=== PATIENT | female | born 1945 | race Caucasian/White ===

== ENCOUNTER 2024-09-09 13:07 | Inpatient (IN) ==
[2024-09-09 14:43] LABS: Basophils # (auto) 0.04 K/uL (0.00-0.20); Basophils % (auto) 0.5 %; Eosinophils # (auto) 0.13 K/uL (0.00-0.50); Eosinophils % (auto) 1.7 %; Hemoglobin 9.8 g/dl (12.0-16.0); Immature Granulocytes # (auto) 0.04 K/uL (0.01-0.20); Immature Granulocytes % (auto) 0.5 %; Lymphocytes # (auto) 0.99 K/uL (1.20-3.40); Lymphocytes % (auto) 12.7 %; Mean Corpuscular Hemoglobin 24.2 pg (25.0-34.0); Mean Corpuscular Hgb Conc 30.6 g/dL (32.0-36.0); Mean Platelet Volume 11.1 fL (9.4-12.4); Monocytes # (auto) 0.57 K/uL (0.11-0.59); Monocytes % (auto) 7.3 %; Neutrophils # (auto) 6.04 K/uL (1.40-6.50); Neutrophils % (auto) 77.3 %; Platelet Count 154 K/uL (130-400); Red Blood Count 4.05 M/uL (4.20-5.40); White Blood Count 7.81 K/ul (4.8-10.8)
[2024-09-09 14:59] LABS: Albumin Globulin Ratio 1.1 (0.9-2); Albumin Level 3.2 gm/dl (3.4-5.0); BUN Creatinine Ratio 6.9 (10-20); Bilirubin,Total 1.7 mg/dl (0.2-1.0); Calcium 8.8 mg/dl (8.6-10.3); Creatinine Clr Calc Pharmacy 49.3 ml/min; Globulin 2.8 gm/dl (2.5-4.0); Magnesium 1.4 mg/dl (1.7-2.4); Potassium 3.7 mmol/L (3.5-5.1)
--- NOTE | 2024-09-09 15:03 | XRay Report ---
XR chest 1V portable CLINICAL HISTORY: weakness COMPARISON STUDY: No previous studies for comparison. FINDINGS: Severe osteoarthritis of the left glenohumeral joint is incidentally noted. There is appare nt moderate elevation of the right hemidiaphragm. No consolidation is identified. There is no evidenc e for pulmonary edema. The heart is mildly enlarged. IMPRESSION: 1. No acute cardiopulmonary findings. 2. Mild cardiomegaly without evidence for pulmonary edema. 3. Moderate elevation of the right hemidiaphragm. ACT 112: Negative or not required by law. Electronically signed by: Ar Aguirre M.D. 09/09/2024 3:02 PM
[2024-09-09 15:09] LABS: INR 1.1 (0.9-1.1); Prothrombin Time 11.9 Seconds (9.0-12.0)
[2024-09-09 15:11] LABS: Thyroid Stimulating Hormone 1.825 uIu/ml (0.300-4.500)
[2024-09-09] MEDS: MAGNESIUM SULFATE / D5W 1 GM/100 ML BAG IV ONE (16:44)
[2024-09-09] MEDS: FUROSEMIDE 40 MG/4 ML VIAL IV ONE (17:16)
[2024-09-09] MEDS ORDERED: GLUCOSE 40% GEL 15 GM TUBE PO PRN (17:29)
[2024-09-09] MEDS ORDERED: CARBOHYDRATES FOR HYPOGLYCEMIA PO PRN (17:29)
[2024-09-09] MEDS ORDERED: GLUCAGON FOR INJ 1 MG VIAL SQ PRN (17:29)
[2024-09-09] MEDS ORDERED: PHARMACY GLYCEMIC MGMT CONSULT PRN (17:29)
[2024-09-09] MEDS ORDERED: DEXTROSE 50% 50 ML SYRINGE IV PRN (17:29)
[2024-09-09] MEDS ORDERED: ONDANSETRON INJ 2 MG/ML 2 ML VIAL IV PRN (17:29)
[2024-09-09] MEDS ORDERED: GLUCOSE 10 TAB/TUBE PO PRN (17:29)
[2024-09-09] MEDS ORDERED: MAGNESIUM HYDROXIDE SUSP 30 ML UDC PO PRN (17:29)
[2024-09-09] MEDS ORDERED: ALUMINUM/MAGNESIUM SUSP 30 ML UDC PO PRN (17:29)
[2024-09-09 17:37] LABS: Appearance Urine Clear (Clear); Bacteria Urine Automated None Seen (None Seen); Bilirubin Urine Negative (Negative); Blood Urine 1+ (Negative); Cast Urine Automated 0-2 /lpf (0-2); Color Urine Yellow; Epithelial Cell Urine Auto 0-2 /hpf (0-2); Glucose Urine UA Negative (Negative); Ketones Urine Negative (Negative); Leukocyte Esterase Urine Negative (Negative); Nitrite Urine Negative (Negative); Protein Urine Negative (Negative); Specific Gravity Urine 1.011 (1.000-1.030); Urobilinogen Urine Negative (Negative); WBC Urine Automated 0-5 /hpf (0-5); pH Urine 5.5 (4.5-7.5)
[2024-09-09] MEDS: POTASSIUM CHLORIDE CRTAB 20 MEQ TABCR PO STA (17:46)
--- NOTE | 2024-09-09 18:47 | Emergency Department Note ---
Impression & Plan Cirrhosis, Edema, peripheral, Abdominal ascites ED Provider Note NAME: BARB DOCKERY AGE: 79 SEX: Female INFORMANT: Patient and ED PROVIDER(S): Kiko Castro MD CHIEF COMPLAINT: Ascites PLAN: Disposition: Admitted Outpatient prescription management: none Referral: None MEDICAL DECISION MAKING: Patient presented because of ascites and weight gain. On physical examination she did have peripheral edema as well as a fluid wave. There is no abdominal tenderness or fever to suggest SBP. Patient underwent laboratory testing. She was found to have low magnesium and this was repleted. BNP was mildly elevated. No leukocytosis. Patient had outpatient imaging done at [facility] and I did obtain these records. They did note significant ascites and cirrhotic morphology to the liver. Patient has no physical diagnosis on workup and given the weight gain and significant ascites present further management in the hospital was deemed appropriate. [facility] Patient was evaluated in the ER and admitted for further management. 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 Vital Signs: reviewed and remarkable for hypertension Additional History obtained from: Family. They provided details of the patient's weight gain. Chronic Medical/Social Conditions affecting care: Hypertension Prior/ Outside/ External records reviewed: Outpatient CT imaging report obtained from [facility]. Cirrhotic liver and ascites present. Differential Diagnosis: Liver failure, cirrhosis, ascites, CHF, infections, cardiac, gastrointestinal, as well as other pathologies. Diagnostics, independently interpreted by me: ECG: Twelve-lead ECG reveals a sinus rhythm at [address] elevation. Low voltage QRS. Cardiac Monitoring: Cardiac monitoring ordered by me: The patient was placed on continuous cardiac monitoring and observed. It revealed a sinus rhythm at 75 beats per minute without ectopy or evidence of dysrhythmia. Medical decision rules: none Imaging studies: Chest x-ray reveals cardiomegaly without significant pulmonary edema or pneumonia. Elevated right hemidiaphragm. HPI: 79 year old Female arrives for evaluation of weight gain and abdominal distention. Patient notes over the last few weeks she has had increased weight gain of 14 pounds. She notes some shortness of breath. She she has abdominal distention and swelling in her legs and feet. Patient had outpatient testing done at the [facility] and was found to have significant ascites as well as a cirrhotic appearance of the liver. No prior history of cirrhosis. Patient does not drink alcohol. Due to the increased weight gain and abdominal distention patient was directed here for further evaluation. Pt denies LOC, headache, fevers, chills, diaphoresis, visual changes, neck pain, chest pain, breathing difficulties, nausea, vomiting, abdominal pain, back pain, melena, hematochezia, urinary symptoms, numbness, focal weakness, lymphadenopathy, rash, or other complaints. PAST MEDICAL HISTORY: See Below, hypertension PAST SURGICAL HISTORY: See Below, SOCIAL HISTORY: See Below, HOME MEDICATIONS: See Below ALLERGIES: See Below VITALS: See Below PHYSICAL EXAMINATION: GENERAL: Awake, alert, well-appearing, in no distress HENT: Normocephalic, atraumatic. Oropharynx unremarkable. EYES: Normal conjunctiva. Sclera non-icteric. NECK: Inspection normal. Non-tender. Supple. No nuchal rigidity. FROM. No masses. RESPIRATORY: Clear to auscultation. No wheezes. No rales. Normal respiratory effort. CARDIAC: Normal rate. Normal rhythm. No murmurs. No rubs. Extremities warm and well perfused. Pulses equal. No JVD. GI: Soft, moderately distended. Positive fluid wave. No tenderness to palpation. No rebound or guarding. No masses. RECTAL: Deferred. MUSCULOSKELETAL: Atraumatic. Chest examination reveals no tenderness. The back is symmetrical on inspection without obvious abnormality. There is no CVA tenderness to palpation. No joint edema. LOWER EXTREMITIES: Calves are equal size bilaterally and non-tender. 2-3+ edema. No discoloration. NEURO: Normal sensorium. No sensory or motor deficits noted. SKIN: No rash or jaundice noted. PROCEDURES: none CRITICAL CARE: none OBSERVATION NOTE: none Past Med/Surg History Problem List (Updated 09/09/24 @ 18:47 by Kiko Castro MD) Abdominal ascites (Acute) Edema, peripheral (Acute) Cirrhosis (Acute) Social History Smoking Status: Former smoker Preferred Language: Bhutanese Feels Safe at Home: Yes Allergies Allergies Allergy/AdvReac Type Severity Reaction Status Date / Time No Known Allergies Allergy Unverified 09/09/24 16:33 Results & Data (ED) Vital Signs Vital Signs - 24 hr 09/09/24 13:23 09/09/24 13:23 09/09/24 15:04 Temperature 37.0 C 37.0 C Temperature Source Oral Oral Pulse Rate 67 68 Pulse Rate [Apical] 70 Pulse Rhythm Regular Regular Pulse Rhythm [Apical] Regular Pulse Strength Normal Pulse Strength [Apical] Normal Respiratory Rate 22 22 20 Respiratory Effort / Characteristics Spontaneous Labored Spontaneous Labored Respiratory Depth Normal Normal Respiratory Pattern Regular Regular Blood Pressure 185/58 H Blood Pressure [Right Arm] 185/58 H Blood Pressure Mean 100 Blood Pressure Mean [Right Arm] 100 Blood Pressure Position Lying Blood Pressure Position [Right Arm] Lying Pulse Oximetry 94 Oxygen Delivery Method Room Air Sepsis Recent Fever Within 48 Hours No Sepsis New/Unexplained Change in Mental Status No Sepsis Action Taken by Nursing No Action Required 09/09/24 17:04 Temperature Temperature Source Pulse Rate Pulse Rate [Apical] 66 Pulse Rhythm Pulse Rhythm [Apical] Regular Pulse Strength Pulse Strength [Apical] Normal Respiratory Rate 20 Respiratory Effort / Characteristics Non-Labored Spontaneous Respiratory Depth Normal Respiratory Pattern Regular Blood Pressure Blood Pressure [Right Arm] 191/57 H Blood Pressure Mean Blood Pressure Mean [Right Arm] 101 Blood Pressure Position Blood Pressure Position [Right Arm] Semi-fowlers Pulse Oximetry 96 Oxygen Delivery Method Room Air Sepsis Recent Fever Within 48 Hours Sepsis New/Unexplained Change in Mental Status Sepsis Action Taken by Nursing Laboratory Data 09/09/24 13:20 09/09/24 13:20 Lab Results 09/09/24 09/09/24 Range/Units 13:20 17:00 WBC 7.81 (4.8-10.8) K/ul RBC 4.05 L (4.20-5.40) M/uL Hgb 9.8 L (12.0-16.0) g/dl Hct 32.0 L (37.0-47.0) % MCV 79.0 L (80.0-100.0) fL MCH 24.2 L (25.0-34.0) pg MCHC 30.6 L (32.0-36.0) g/dL RDW Std Deviation 43.0 (36.4-46.3) fL RDW Coeff of Pankaj 15.0 H (11.5-14.5) % Plt Count 154 (130-400) K/uL MPV 11.1 (9.4-12.4) fL Immature Gran % (Auto) 0.5 % Neut % (Auto) 77.3 % Lymph % (Auto) 12.7 % Lares % (Auto) 7.3 % Eos % (Auto) 1.7 % Baso % (Auto) 0.5 % Neut # (Auto) 6.04 (1.40-6.50) K/uL Lymph # (Auto) 0.99 L (1.20-3.40) K/uL Lares # (Auto) 0.57 (0.11-0.59) K/uL Eos # (Auto) 0.13 (0.00-0.50) K/uL Baso # (Auto) 0.04 (0.00-0.20) K/uL Immature Gran # (Auto) 0.04 (0.01-0.20) K/uL PT 11.9 (9.0-12.0) Seconds INR 1.1 (0.9-1.1) Sodium 138 (136-145) mmol/L Potassium 3.7 (3.5-5.1) mmol/L Chloride 105 (98-107) mmol/L Carbon Dioxide 23 (21-32) mmol/L Anion Gap 10 (3-11) BUN 7 (6-23) mg/dl Creatinine 1.02 (0.6-1.2) mg/dl Est Cr Clr Drug Dosing 49.3 ml/min eGFR 55.61 BUN/Creatinine Ratio 6.9 L (10-20) Glucose 199 H (70-99(Fasting)) mg/dl Calcium 8.8 (8.6-10.3) mg/dl Magnesium 1.4 L (1.7-2.4) mg/dl Total Bilirubin 1.7 H (0.2-1.0) mg/dl AST 26 (13-39) U/L ALT 18 (7-52) U/L Alkaline Phosphatase 166 H (34-104) U/L B-Natriuretic Peptide 338 H (0-100) pg/ml Total Protein 6.0 (6.0-8.3) gm/dl Albumin 3.2 L (3.4-5.0) gm/dl Globulin 2.8 (2.5-4.0) gm/dl Albumin/Globulin Ratio 1.1 (0.9-2) TSH 1.825 (0.300-4.500) uIu/ml Urine Color Yellow Urine Appearance Clear (Clear) Urine pH 5.5 (4.5-7.5) Ur Specific [place] 1.011 (1.000-1.030) Urine Protein Negative (Negative) Urine Glucose (UA) Negative (Negative) Urine Ketones Negative (Negative) Urine Blood 1+ H (Negative) Urine Nitrite Negative (Negative) Urine Bilirubin Negative (Negative) Urine Urobilinogen Negative (Negative) Ur Leukocyte Esterase Negative (Negative) Urine WBC (Auto) 0-5 (0-5) /hpf Urine RBC (Auto) 6-10 H (0-2) /hpf U Hyaline Cast (Auto) 0-2 (0-2) /lpf U Epithel Cells (Auto) 0-2 (0-2) /hpf Urine Bacteria (Auto) None Seen (None Seen) Administered Medications Discontinued Medications Furosemide (Furosemide 40 Mg/4 Ml Vial) 40 mg IV ONE ONE Stop: 09/09/24 17:04 Last Admin: 09/09/24 17:16 Dose: 40 mg Documented By: Magnesium Sulfate/Dextrose (Magnesium Sulfate / D5w) 1 gm in 100 mls @ 50 mls/hr IV ONE ONE Stop: 09/09/24 18:26 Last Infusion: 09/09/24 18:44 Dose: Infused Documented By: Admin: 09/09/24 16:44 Dose: 50 mls/hr Documented By: MSG Potassium Chloride (Potassium Chloride Crtab 20 Meq Tabcr) 40 meq PO NOW STA Stop: 09/09/24 17:28 Last Admin: 09/09/24 17:46 Dose: 40 meq Documented By: MSG Imaging Data Radiologist's Impression: Chest X-Ray 09/09/24 14:23 XR chest 1V portable CLINICAL HISTORY: weakness COMPARISON STUDY: No previous studies for comparison. FINDINGS: Severe osteoarthritis of the left glenohumeral joint is incidentally noted. There is apparent moderate elevation of the right hemidiaphragm. No consolidation is identified. There is no evidence for pulmonary edema. The heart is mildly enlarged. IMPRESSION: 1. No acute cardiopulmonary findings. 2. Mild cardiomegaly without evidence for pulmonary edema. 3. Moderate elevation of the right hemidiaphragm. ACT 112: Negative or not required by law. Electronically signed by: Ar Aguirre M.D. 09/09/2024 3:02 PM Discharge Plan Visit Data Chief Complaint: Illness Stated Complaint: ILLNESS ED Provider: Kiko Castro Discharge Problem: Cirrhosis, Edema, peripheral, Abdominal ascites
[2024-09-09] MEDS: MAGNESIUM SULFATE / D5W 1 GM/100 ML BAG IV SCH (19:11)
--- NOTE | 2024-09-09 20:01 | History & Physical Report ---
Date of Service September 09, 2024 Assessment & Plan (1) Abdominal ascites: Plan Volume overload, ascites Likely cirrhosis Patient presenting with progressive volume overload. See HPI. BNP elevated at presentation, will get echo, patient does have shortness of breath starting today. Patient denies abdominal pain, denies febrile illness, reports occasional alcohol intake [once a month]. Recent outpatient CT scan 09/03/2024: CT abdomen revealed marked ascites, probable cirrhosis, severe degenerative disc disease throughout lumbar spine. Given a dose of IV Lasix in the ED, will continue with IV Lasix daily for now. Will need paracentesis likely tomorrow. Continue with diuresis, monitor and replete electrolytes. GI consult. Hypomagnesemia: Admitting magnesium of 1.4, will replete 3 to 4 g of magnesium. Labs in AM. Other chronic medical conditions: Dementia, HTN, HLD, GERDcontinue with/resume home meds as and when able. DVT prophylaxis: Heparin subcu DNR/DNI Admission and Anticipated Discharge Date Admission Date: September 09, 2024 History of Present Illness Chief Complaint: generalized body swelling, shortness of breath Primary Care Provider: John Joseph 79-year-old lady with PMH of HTN, GERD, urinary incontinence, T2DM, cerebrovascular disease, CKD stage IIIb, secondary pulmonary arterial hypertension, thrombocytopenia, Alzheimer's disease, vascular dementia, major depression in remission, iron deficiency anemia, vitamin D deficiency, obesity presented to the ED with complaint of swelling and weight gain and shortness of breath. Patient reports fluid overload in the form of increasing abdominal girth and increasing lower extremity swelling for about 2 weeks, progressively worsening. Patient reports feeling weak and dizzy at times. Patient reports recent sore throat and mostly dry cough now, denies headache or chest pain or palpitation or belly pain or pain or burning while passing urine. Patient reports her bowel mo vements at her usual frequency. Patient did report shortness of breath since today which triggered her to come to the ED. Patient states quitting smoking more than 20 years ago, reports drinking alcohol maybe once a month, denies recreational drug use. Medications reviewed with the patient and her in detail at bedside. Patient takes metformin 1 g twice a day, Trulicity 3 mg subcutaneous once a week, losartan 100 mg once a day, metoprolol tartrate 12.5 mg twice a day, paroxetine 37.5 mg once a day, hydrochlorothiazide 25 mg once a day, atorvastatin 40 mg once a day, cholestyramine 4 g twice a day, oxybutynin 5 mg twice a day, gabapentin 100 mg in the morning and 200 mg in the evening, aspirin 81 mg daily, pantoprazole 40 mg daily, donepezil 10 mg at bedtime, memantine 10 mg twice a day. Plan of care discussed with the patient and her at bedside, they voiced understanding. DNR/DNI. Allergies Allergy/AdvReac Type Severity Reaction Status Date / Time No Known Allergies Allergy Unverified 09/09/24 16:33 Past Med/Surg History Problem List (Updated 09/09/24 @ 18:47 by Kiko Castro MD) Abdominal ascites (Acute) Edema, peripheral (Acute) Cirrhosis (Acute) Social History Smoking Status: Former smoker Hx Alcohol Use: Yes Hx Substance Use: No Preferred Language: Portuguese Communication Ability: Effective Recruitment Internship Required: No Beliefs That Will Affect Care: None Current Living Situation: Spouse Other Information That Helps Us Care for You: No Feels Safe at Home: Yes Safety Concerns: Feels Safe At This Time Assistive Devices: Glasses and Walker Review of Systems Review of Systems: Negative otherwise mentioned in HPI. Physical Exam Physical Exam: GENERAL: Alert and oriented x3. NAD, on RA. Obese class I HEENT: No pallor, no icterus. Pupils equal, round and reactive to light. Oral mucosa moist. NECK: No JVD, no neck masses. HEART: S1 and S2 heard. Regular rate and rhythm. No murmur, no gallop. RESPIRATORY SYSTEM: Normal AP diameter. No accessory muscle use. No wheezing, bb crackles. ABDOMEN: Soft, bowel sounds present, nontender, + distention. CENTRAL NERVOUS SYSTEM: No facial droop. Speech is clear. Obeys simple commands. Moves extremities. EXTREMITIES: 2+ BLE edema, no erythema seen. Results & Data Results & Data Vital Signs (Past 12 Hours) Vital Signs Temp Pulse Pulse Resp BP BP Pulse Ox 09/09/24 19:00 36.8 C 68 22 182/83 H 95 09/09/24 17:58 75 09/09/24 17:34 66 18 179/109 H 97 09/09/24 17:04 66 20 191/57 H 96 09/09/24 15:04 68 20 94 09/09/24 13:23 37.0 C 70 22 185/58 H 09/09/24 13:23 37.0 C 67 22 185/58 H O2 Del Method 09/09/24 19:00 Room Air 09/09/24 17:58 09/09/24 17:34 Room Air 09/09/24 17:04 Room Air 09/09/24 15:04 Room Air 09/09/24 13:23 09/09/24 13:23
[2024-09-09] MEDS: CHOLESTYRAMINE LIGHT 4 GM PKT PO SCH (21:19)
[2024-09-09] MEDS: GABAPENTIN 100 MG CAP PO SCH (21:19)
[2024-09-09] MEDS: DONEPEZIL HCL 10 MG TAB PO SCH (21:19)
[2024-09-09] MEDS: METOPROLOL TARTRATE 25 MG TAB PO SCH (21:20)
[2024-09-09] MEDS: OXYBUTYNIN CHLORIDE XL 5 MG TABCR PO SCH (21:20)
[2024-09-09] MEDS: MEMANTINE HCL 10 MG TAB PO SCH (21:21)
[2024-09-09] MEDS: LANTUS PER UNIT CHARGE SQ SCH (21:32)
[2024-09-09] MEDS: HEPARIN SOD 5,000 UNIT/0.5 ML VIAL SQ SCH (21:32)
[2024-09-09] MEDS: INSULIN ASPART PER UNIT CHARGE SC SCH (21:34)
[2024-09-10 06:36] LABS: Hematocrit (blood only) 30.4 % (37.0-47.0); Hemoglobin 9.7 g/dl (12.0-16.0); Mean Corpuscular Hemoglobin 24.5 pg (25.0-34.0); Mean Corpuscular Hgb Conc 31.9 g/dL (32.0-36.0); Mean Corpuscular Volume 76.8 fL (80.0-100.0); Mean Platelet Volume 10.7 fL (9.4-12.4); Platelet Count 166 K/uL (130-400); RDW Coefficient of Variation 15.1 % (11.5-14.5); RDW Standard Deviation 41.5 fL (36.4-46.3); Red Blood Count 3.96 M/uL (4.20-5.40); White Blood Count 6.03 K/ul (4.8-10.8)
[2024-09-10 06:53] LABS: BUN Creatinine Ratio 7.6 (10-20); Calcium 8.7 mg/dl (8.6-10.3); Creatinine Clr Calc Pharmacy 46.5 ml/min; Magnesium 1.9 mg/dl (1.7-2.4); Phosphorus 3.3 mg/dl (2.5-4.9); Potassium 3.6 mmol/L (3.5-5.1)
[2024-09-10] MEDS: PANTOprazole 40 MG TAB PO SCH (08:18)
[2024-09-10] MEDS: GABAPENTIN 100 MG CAP PO SCH (08:18)
[2024-09-10] MEDS: ASPIRIN 81 MG ECTAB PO SCH (08:19)
[2024-09-10] MEDS: ATORVASTATIN 40 MG TAB PO SCH (08:19)
[2024-09-10] MEDS: FUROSEMIDE 40 MG/4 ML VIAL IV SCH (08:25)
[2024-09-10] MEDS ORDERED: hydroCHLOROthiazide 25 MG TAB PO SCH (09:00)
[2024-09-10] MEDS ORDERED: LOSARTAN POTASSIUM 50 MG TAB PO SCH (09:00)
[2024-09-10] MEDS ORDERED: PARoxetine HCL 10 MG TAB PO SCH (09:00)
[2024-09-10 09:16] LABS: Estimated Average Glucose 232 mg/dl; Hemoglobin A1C 9.7 % (4.5-5.6)
--- NOTE | 2024-09-10 09:35 | Electrocardiogram Report ---
Test Reason : Blood Pressure : */* mmHG Vent. Rate : 68 BPM Atrial Rate : * BPM P-R Int : * ms QRS Dur : 72 ms QT Int : 450 ms P-R-T Axes : * -30 0 degrees QTcB Int : 478 ms Accelerated Junctional rhythm Left axis deviation Low voltage QRS Possible Old Septal infarct Abnormal ECG No previous ECGs available Confirmed by David Rene ([id number]) on 09/10/2024 9:34:59 AM Referred By: Confirmed By: David Rene
--- NOTE | 2024-09-10 10:28 | Gastrointestinal Consultation ---
<Statement entered by Jackson Yoon MD - 09/10/24 13:03> I personally saw and examined the patient. I have reviewed the chart and agree with the documentation provided by the FOUNDRY MOLDER including discussion about the assessment, treatment and plan. Briefly, 79 year old female with history of HTN, GERD, urinary incontinence, T2DM, cerebrovascular disease, CKD-3, secondary pulmonary arterial hypertension, thrombocytopenia, Alzheimer's disease, vascular dementia, depression, LASHAE, vitamin D deficiency, obesity and others below who is admitted through the ED w/ volume overload - GI was asked to evaluate for ascites and ?kilgore cirrhosis. Pt was seen and evaluated, chart reviewed. at bedside who aids in history. Suggests about 2-3 weeks ago he noted gradual lower extremity edema and abdominal distention. CT with cirrhosis and ascites. Patient has new onset cirrhosis likely secondary to KILGORE but will get hepatitis serologies and genetic liver disease studies. We should do a paracentesis and send the fluid off for albumin total protein cell count cytology. Based on this suspect she has portal hypertension with cirrhosis -likely KILGORE cirrhosis. We will obtain her old colonoscopy and EGD reports. She will need imaging with ultrasound every 6 months and then alpha-fetoprotein. She started on Lasix and Aldactone after her paracentesis. She will need to be on a 2000 mg sodium diet. GI will follow Date of Consultation September 10, 2024 Assessment & Plan (1) Abdominal ascites: 79 year old female with history of HTN, GERD, urinary incontinence, T2DM, cerebrovascular disease, CKD-3, secondary pulmonary arterial hypertension, thrombocytopenia, Alzheimer's disease, vascular dementia, depression, LASHAE, vitamin D deficiency, obesity and others below who is admitted through the ED w/ volume overload - GI was asked to evaluate for ascites and ?kilgore cirrhosis. I do not have access to these outside imaging reports to review at time of our consultation. To better evaluate the elevated liver function tests, additional studies will be ordered to rule out intrinsic causes of liver dysfunction including autoimmune studies, infectious studies and hereditary/genetic conditions to include JATINDER, AMA, ASMA, acute hepatitis, SPEP, ceruloplasmin, iron studies/ferritin, TTG IGA, Hep A IGG, Hep B AB. - MELD 10 - ABD US - Follow liver serology - Diagnostic/therapeutic paracentesis - Check cell count, culture, protein, albumin, cytology - Albumin fluid replacement 25% 25 G before and after paracentesis - MELD labs every 6 months - ABD imaging w/ AFP every 6 months - EGD every 1-2 years - No ETOH - No NSAIDs - Avoid hepatotoxin - Low NA diet, less than 2G daily - Pt and spouse verbalize this will be challenging for them - Consider dietary consultation while admitted - Less than 2G acetaminophen containing products daily Thank you for allowing us to participate in the care of this patient. Please call with any acute changes, questions or concerns. Please see addendum below with additional recommendation from my supervising physician. I spent a total of 80 minutes on the date of service in review of patient's record, and previously obtained information in person and appropriate medical visit, discussion and education of plan, with patient and/or caregiver, placing orders for tests/referral/procedures as medically necessary and documentation of pertinent clinical information in patient's medical records for their visit today. History of Present Illness Reason for Consultation: ascites, ?kilgore cirrhosis Requesting Physician: Miguel Fischer MD Attending Physician: Miguel Fischer MD History of Present Illness 79 year old female with history of HTN, GERD, urinary incontinence, T2DM, cerebrovascular disease, CKD-3, secondary pulmonary arterial hypertension, thrombocytopenia, Alzheimer's disease, vascular dementia, depression, LASHAE, vitamin D deficiency, obesity and others below who is admitted through the ED w/ volume overload - GI was asked to evaluate for ascites and ?kilgore cirrhosis. Pt was seen and evaluated, chart reviewed. at bedside who aids in history. Suggests about 2-3 weeks ago he noted gradual lower extremity edema and abdominal distention. Denies abd pain but reports feeling full/bloated. Denies nausea/vomiting. No GERD. No dysphagia. Reports daily BMs. Soft/loose at times. No report of black or bloody stools. EGD/Colonoscopy about 1 year ago at [facility]. She is unsure what these shows. Family notes that she was at [facility] recently and was told she had cirrhosis based off of imaging. No ETOH abuse history Denies history of illicit drug use No family history of liver disease Diagnosis: cirrhosis (diagnoses presumed from an imaging study report I do not have access to) Decompensations Varices: unknown Ascites: present on physical examination HE: none Screenings MELD: 10 Varices: unknown Immunizations: unknown Allergies Allergy/AdvReac Type Severity Reaction Status Date / Time No Known Allergies Allergy Unverified 09/09/24 16:33 Patient History Social History Smoking Status: Former smoker Hx Alcohol Use: Yes Hx Substance Use: No Preferred Language: Urdu Communication Ability: Effective [employer] Appellate Clerk Required: No Beliefs That Will Affect Care: None Current Living Situation: Spouse Other Information That Helps Us Care for You: No Feels Safe at Home: Yes Safety Concerns: Feels Safe At This Time Assistive Devices: Glasses and Walker Review of Systems Review of Systems: All other findings negative except as noted in HPI. Physical Exam Constitutional: WD/WN, vitals as above Respiratory: normal respiratory effort; no respiratory distress Cardiovascular: Rate/Rhythm: regular rate and regular rhythm Gastrointestinal (Abdomen): normal bowel sounds, soft, nontender, no hepatosplenomegaly +ascites Skin: no rashes, warm and dry Results & Data Vital Signs (Past 12 Hours) Vital Signs Temp Pulse Pulse Resp BP BP Pulse Ox 09/10/24 07:44 36.8 C 69 18 139/75 92 09/10/24 07:16 09/10/24 02:57 36.6 C 67 18 163/74 H 94 09/10/24 00:00 67 O2 Del Method 09/10/24 07:44 Room Air 09/10/24 07:16 Room Air 09/10/24 02:57 Room Air 09/10/24 00:00 Laboratory Results 09/10/24 09/09/24 09/09/24 Range/Units 06:13 20:18 18:49 WBC 6.03 (4.8-10.8) K/ul RBC 3.96 L (4.20-5.40) M/uL Hgb 9.7 L (12.0-16.0) g/dl Hct 30.4 L (37.0-47.0) % MCV 76.8 L (80.0-100.0) fL MCH 24.5 L (25.0-34.0) pg MCHC 31.9 L (32.0-36.0) g/dL RDW Std Deviation 41.5 (36.4-46.3) fL RDW Coeff of Pankaj 15.1 H (11.5-14.5) % Plt Count 166 (130-400) K/uL MPV 10.7 (9.4-12.4) fL Immature Gran % (Auto) % Neut % (Auto) % Lymph % (Auto) % [place] % (Auto) % Eos % (Auto) % Baso % (Auto) % Neut # (Auto) (1.40-6.50) K/uL Lymph # (Auto) (1.20-3.40) K/uL [place] # (Auto) (0.11-0.59) K/uL Eos # (Auto) (0.00-0.50) K/uL Baso # (Auto) (0.00-0.20) K/uL Immature Gran # (Auto) (0.01-0.20) K/uL PT (9.0-12.0) Seconds INR (0.9-1.1) Sodium 139 (136-145) mmol/L Potassium 3.6 (3.5-5.1) mmol/L Chloride 105 (98-107) mmol/L Carbon Dioxide 27 (21-32) mmol/L Anion Gap 7 (3-11) BUN 8 (6-23) mg/dl Creatinine 1.05 (0.6-1.2) mg/dl Est Cr Clr Drug Dosing 46.5 ml/min eGFR 53.71 BUN/Creatinine Ratio 7.6 L (10-20) Glucose 132 H (70-99(Fasting)) mg/dl POC Glucose 209 H 169 H (70-99) mg/dl Estimat Average Glucose 232 mg/dl Hemoglobin A1c 9.7 H (4.5-5.6) % Calcium 8.7 (8.6-10.3) mg/dl Phosphorus 3.3 (2.5-4.9) mg/dl Magnesium 1.9 (1.7-2.4) mg/dl Total Bilirubin (0.2-1.0) mg/dl AST (13-39) U/L ALT (7-52) U/L Alkaline Phosphatase (34-104) U/L B-Natriuretic Peptide (0-100) pg/ml Total Protein (6.0-8.3) gm/dl Albumin (3.4-5.0) gm/dl Globulin (2.5-4.0) gm/dl Albumin/Globulin Ratio (0.9-2) TSH (0.300-4.500) uIu/ml Urine Color Urine Appearance (Clear) Urine pH (4.5-7.5) Ur Specific [place] (1.000-1.030) Urine Protein (Negative) Urine Glucose (UA) (Negative) Urine Ketones (Negative) Urine Blood (Negative) Urine Nitrite (Negative) Urine Bilirubin (Negative) Urine Urobilinogen (Negative) Ur Leukocyte Esterase (Negative) Urine WBC (Auto) (0-5) /hpf Urine RBC (Auto) (0-2) /hpf U Hyaline Cast (Auto) (0-2) /lpf U Epithel Cells (Auto) (0-2) /hpf Urine Bacteria (Auto) (None Seen) 09/09/24 09/09/24 Range/Units 17:00 13:20 WBC 7.81 (4.8-10.8) K/ul RBC 4.05 L (4.20-5.40) M/uL Hgb 9.8 L (12.0-16.0) g/dl Hct 32.0 L (37.0-47.0) % MCV 79.0 L (80.0-100.0) fL MCH 24.2 L (25.0-34.0) pg MCHC 30.6 L (32.0-36.0) g/dL RDW Std Deviation 43.0 (36.4-46.3) fL RDW Coeff of Pankaj 15.0 H (11.5-14.5) % Plt Count 154 (130-400) K/uL MPV 11.1 (9.4-12.4) fL Immature Gran % (Auto) 0.5 % Neut % (Auto) 77.3 % Lymph % (Auto) 12.7 % [place] % (Auto) 7.3 % Eos % (Auto) 1.7 % Baso % (Auto) 0.5 % Neut # (Auto) 6.04 (1.40-6.50) K/uL Lymph # (Auto) 0.99 L (1.20-3.40) K/uL [place] # (Auto) 0.57 (0.11-0.59) K/uL Eos # (Auto) 0.13 (0.00-0.50) K/uL Baso # (Auto) 0.04 (0.00-0.20) K/uL Immature Gran # (Auto) 0.04 (0.01-0.20) K/uL PT 11.9 (9.0-12.0) Seconds INR 1.1 (0.9-1.1) Sodium 138 (136-145) mmol/L Potassium 3.7 (3.5-5.1) mmol/L Chloride 105 (98-107) mmol/L Carbon Dioxide 23 (21-32) mmol/L Anion Gap 10 (3-11) BUN 7 (6-23) mg/dl Creatinine 1.02 (0.6-1.2) mg/dl Est Cr Clr Drug Dosing 49.3 ml/min eGFR 55.61 BUN/Creatinine Ratio 6.9 L (10-20) Glucose 199 H (70-99(Fasting)) mg/dl POC Glucose (70-99) mg/dl Estimat Average Glucose mg/dl Hemoglobin A1c (4.5-5.6) % Calcium 8.8 (8.6-10.3) mg/dl Phosphorus (2.5-4.9) mg/dl Magnesium 1.4 L (1.7-2.4) mg/dl Total Bilirubin 1.7 H (0.2-1.0) mg/dl AST 26 (13-39) U/L ALT 18 (7-52) U/L Alkaline Phosphatase 166 H (34-104) U/L B-Natriuretic Peptide 338 H (0-100) pg/ml Total Protein 6.0 (6.0-8.3) gm/dl Albumin 3.2 L (3.4-5.0) gm/dl Globulin 2.8 (2.5-4.0) gm/dl Albumin/Globulin Ratio 1.1 (0.9-2) TSH 1.825 (0.300-4.500) uIu/ml Urine Color Yellow Urine Appearance Clear (Clear) Urine pH 5.5 (4.5-7.5) Ur Specific [place] 1.011 (1.000-1.030) Urine Protein Negative (Negative) Urine Glucose (UA) Negative (Negative) Urine Ketones Negative (Negative) Urine Blood 1+ H (Negative) Urine Nitrite Negative (Negative) Urine Bilirubin Negative (Negative) Urine Urobilinogen Negative (Negative) Ur Leukocyte Esterase Negative (Negative) Urine WBC (Auto) 0-5 (0-5) /hpf Urine RBC (Auto) 6-10 H (0-2) /hpf U Hyaline Cast (Auto) 0-2 (0-2) /lpf U Epithel Cells (Auto) 0-2 (0-2) /hpf Urine Bacteria (Auto) None Seen (None Seen) PG Care Time/CCT Total # of Minutes Spent Total Time Spent with Patient: Total time spent is greater than 50% in coordination of care (as documented) at patient's floor/unit and/or counseling patient: Coding Level of Care Code 93294 INT INP/OBS CARE 3/75MIN Diagnoses Abdominal ascites R18.8
--- NOTE | 2024-09-10 10:45 | Pharmacy Report ---
Pharmacy Glycemic Short Note 2 - Date of Service September 10, 2024 - Glycemic Short BSG Results (Last 24 hours): 09/09/24 09/09/24 09/09/24 13:20 18:49 20:18 Glucose 199 H POC Glucose 169 H 209 H 09/10/24 06:13 Glucose 132 H POC Glucose OUTPATIENT ANTIDIABETIC REGIMEN: * Metformin 1g BID * Trulicity 3 mg SQ once weekly * A1c 9.7% 09/10/24 ASSESSMENT: * is here for abdominal ascites and is consulted to manage her T2DM. PMH includes CKD III, HTD, and HLD. * BSGs last night were elevated above goal range, but seemed to have come down this AM after receiving 7 units of glargine and 1 unit of aspart last night. * Pt ordered PO diet. PLAN FOR INPATIENT GLYCEMIC CONTROL: * Hold outpatient diabetes medications * Basal insulin * Lantus 7 units SQ BID * Bolus insulin * NovoLog per scale ACHS or Q6hrs while NPO * Goal Range: Low 110 mg/dL - High 140 mg/dL * Correction Factor: 40 mg/dL/unit * Nutritional / Prandial insulin per carb ratio of 1 unit per 15 grams CHO consumed
[2024-09-10] MEDS ORDERED: ALBUMIN 25% 25 GM/100 ML VIAL IV SCH (12:00)
--- NOTE | 2024-09-10 14:24 | Hospitalist Progress Note ---
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 scan 09/03/2024: CT abdomen revealed marked ascites, probable cirrhosis, severe degenerative disc disease throughout lumbar spine. BNP elevated Echo shows EF of 60 to 65% with mild concentric LVH. Ordered for IR guided paracentesis(therapeutic/diagnostic); to be done tomorrow a.m. IV albumin ordered to be given before and after paracentesis. On IV Lasix 40 mg and started on spironolactone 100 mg as well GI consulted; obtain serology for hepatitis and genetic liver diseases studies. Hypertensionon losartan, metoprolol and hydrochlorothiazide at home. Will stop losartan indefinitely due to cirrhosis. Also, hydrochlorothiazide to be stopped in favor of Lasix. Continue metoprolol Type 2 diabetes mellitus HbA1c 9.7%; uncontrolled On Trulicity and metformin at homehold On Lantus and NovoLog here. Hyperlipidemiacontinue on Lipitor Mood disordercontinue on paroxetine Urge incontinencecontinue oxybutynin Neuropathycontinue on gabapentin GERDcontinue on Protonix Dementiacontinue on donepezil and memantine Plan of care discussed with patient's daughter at bedside. DNR/DNI DVT prophylaxis heparin Time spent evaluating patient, direct bedside care, chart review, placing orders, interpretation of diagnostic studies, discussion with consultants, patient, and family members, as well as other required patient management activities is 50 minutes Please note the above document was generated using voice recognition software. It may contain grammatical, syntax or spelling errors. Any formal questions or concerns about the content, text or information contained within the body of this dictation should be directly addressed to the provider for clarification Admission and Anticipated Discharge Date Admission Date: September 09, 2024 Subjective Patient seen and examined at bedside. She reports that her shortness of breath has improved Good urine output in last 24-hour Review of Systems Review of Systems: All systems reviewed & are unremarkable except as noted in Subjective Physical Exam Physical Exam: GENERAL: Alert and oriented x3. NAD, on RA. HEENT: No pallor, no icterus. Pupils equal, round and reactive to light. Oral mucosa moist. NECK: No JVD, no neck masses. HEART: S1 and S2 heard. Regular rate and rhythm. No murmur, no gallop. RESPIRATORY SYSTEM: Normal AP diameter. No accessory muscle use. No wheezing, bb crackles. ABDOMEN: Abdomen distended with fluid thrill present. Soft, nontender. CENTRAL NERVOUS SYSTEM: No facial droop. Speech is clear. Obeys simple commands. Moves extremities. EXTREMITIES: 3+ BLE edema, no erythema seen. Results & Data Results & Data Vital Signs (Past 12 Hours) Vital Signs Temp Pulse Pulse Resp BP BP Pulse Ox 09/10/24 14:17 73 09/10/24 11:54 67 09/10/24 10:41 36.9 C 69 16 138/75 95 09/10/24 07:44 36.8 C 69 18 139/75 92 09/10/24 07:16 09/10/24 02:57 36.6 C 67 18 163/74 H 94 O2 Del Method 09/10/24 14:17 09/10/24 11:54 09/10/24 10:41 Room Air 09/10/24 07:44 Room Air 09/10/24 07:16 Room Air 09/10/24 02:57 Room Air
[2024-09-10] MEDS: PAROXETINE 37.5 MG PO SCH (15:02)
[2024-09-11 06:00] LABS: Basophils # (auto) 0.03 K/uL (0.00-0.20); Basophils % (auto) 0.5 %; Eosinophils # (auto) 0.12 K/uL (0.00-0.50); Eosinophils % (auto) 1.8 %; Hematocrit (blood only) 31.3 % (37.0-47.0); Hemoglobin 9.8 g/dl (12.0-16.0); Immature Granulocytes # (auto) 0.03 K/uL (0.01-0.20); Immature Granulocytes % (auto) 0.5 %; Lymphocytes # (auto) 1.37 K/uL (1.20-3.40); Lymphocytes % (auto) 21.1 %; Mean Corpuscular Hemoglobin 24.4 pg (25.0-34.0); Mean Corpuscular Hgb Conc 31.3 g/dL (32.0-36.0); Mean Corpuscular Volume 77.9 fL (80.0-100.0); Mean Platelet Volume 10.7 fL (9.4-12.4); Monocytes # (auto) 0.57 K/uL (0.11-0.59); Monocytes % (auto) 8.8 %; Neutrophils # (auto) 4.37 K/uL (1.40-6.50); Neutrophils % (auto) 67.3 %; Platelet Count 186 K/uL (130-400); Red Blood Count 4.02 M/uL (4.20-5.40); White Blood Count 6.49 K/ul (4.8-10.8)
[2024-09-11 06:18] LABS: Albumin Level 3.1 gm/dl (3.4-5.0); BUN Creatinine Ratio 9.5 (10-20); Bilirubin,Total 1.3 mg/dl (0.2-1.0); Calcium 8.7 mg/dl (8.6-10.3); Creatinine Clr Calc Pharmacy 41.8 ml/min; Potassium 3.5 mmol/L (3.5-5.1); Total Protein 6.1 gm/dl (6.0-8.3)
[2024-09-11 06:36] LABS: Ferritin 20.1 ng/ml (8-388)
[2024-09-11 09:52] LABS: Hepatitis B Surface Ab Quant < 3.00 mIU/mL (>or=10mIU/mL Immune); Hepatitis B Surface Antibody Non-Immune
--- NOTE | 2024-09-11 09:54 | Ultrasound Report ---
US liver CLINICAL HISTORY: Evaluate cirrhosis. COMPARISON STUDY: No previous studies for comparison. TECHNIQUE: Sonography of the right upper quadrant was performed. FINDINGS: There is coarsening of hepatic echotexture and nodularity of the liver surface indicative o f cirrhosis. No hepatic lesions are identified. The main portal vein is patent with appropriately dir ected flow. There is no biliary ductal dilatation status post cholecystectomy. The common bile duct m easures 3 mm in caliber. Small amount of perihepatic ascites is present. Pancreatic body is normal. T he head and tail are partially obscured. There is no right hydronephrosis. IMPRESSION: 1. Cirrhotic liver. No hepatic lesions identified. 2. No biliary ductal dilatation status post cholecystectomy. 3. Small amount of perihepatic ascites. ACT 112: Negative or not required by law. Electronically signed by: Ar Aguirre M.D. 09/11/2024 9:53 AM
[2024-09-11] MEDS ORDERED: OXYTOCIN 10 UNITS/ML VIAL ONE (10:26)
--- NOTE | 2024-09-11 10:30 | Gastroenterology Progress Note ---
Date of Service September 11, 2024 Assessment & Plan (1) Cirrhosis: (2) Abdominal ascites: Plan Patient feels improved s/p paracentesis. Will await pending results of labs and chronic liver disease panel, though suspect cirrhosis is secondary to JENKINS. - MELD labs every 6 months - ABD imaging w/ AFP every 6 months - EGD every 1-2 years for variceal screening. - No ETOH - No NSAIDs - Avoid hepatotoxins - Low NA diet, less than 2G daily - Less than 2G acetaminophen containing products daily Admission and Anticipated Discharge Date Admission Date: September 09, 2024 Supervising Physician Co-Signing Physician Notes I personally saw and examined the patient. I have reviewed the chart and agree with the documentation provided by the VENEER JOINER including discussion about the assessment, treatment and plan. Briefly, status post paracentesis. 5 L were removed and she feels a lot better. Her serum ascites albumin gradient is 1.6 suggestive of portal hypertension. Her hepatitis C is negative. The rest of the serologies are pending. She will need to continue 40 mg of p.o. Lasix. I would add 100 mg of Aldactone with this. We can stop her potassium supplement to reduce. This will aid with her diuresis. She will need to stay on a 2 g sodium diet. Alpha-fetoprotein and ultrasound every 6 months. Still suspect this is JENKINS cirrhosis with decompensation with ascites. Overall she is better. Family is concerned about her being in bed for 2 days and her needs at home. Can we get a wound care nurse and PT to come by. Subjective Patient is an 79 year old female with history of HTN, GERD, urinary incontinence, T2DM, cerebrovascular disease, CKD-3, secondary pulmonary arterial hypertension, thrombocytopenia, Alzheimer's disease, vascular dementia, depression, LASHAE, vitamin D deficiency, and obesity who is admitted through the ED w/ volume overload - GI was asked to evaluate for ascites and ?jenkins cirrhosis. She is s/p paracentesis this morning. she tells me that her abdomen feels better since having fluid drained. she denies any nausea, vomiting, heartburn, changes in bowels. chronic liver disease labs were ordered and results are pending. Review of Systems Review of Systems: All systems reviewed & are unremarkable except as noted in HPI & below Physical Exam Constitutional: WD/WN, vitals as above Respiratory: normal respiratory effort, lungs clear to auscultation Cardiovascular: Rate/Rhythm: regular rate and regular rhythm Gastrointestinal (Abdomen): normal bowel sounds, soft, nontender, no hepatosplenomegaly Psychiatric: Orientation: alert and oriented x 3 Affect: euthymic affect Results & Data Results & Data Vital Signs (Past 12 Hours) Vital Signs Temp Pulse Pulse Resp BP BP Pulse Ox 09/11/24 09:29 74 09/11/24 08:13 98.2 F 80 16 153/75 H 94 09/11/24 07:55 09/11/24 03:47 98.2 F 74 18 148/78 H 95 09/10/24 23:59 80 152/72 H 09/10/24 23:44 98.2 F 78 18 189/74 H 94 O2 Del Method 09/11/24 09:29 09/11/24 08:13 Room Air 09/11/24 07:55 Room Air 09/11/24 03:47 Room Air 09/10/24 23:59 09/10/24 23:44 Room Air Coding Level of Care Code 43868 SUB INP/OBS CARE 25MIN Diagnoses Cirrhosis K74.60 Abdominal ascites R18.8
[2024-09-11 10:41] LABS: Albumin Peritoneal Fluid < 1.5 gm/dl
[2024-09-11 10:46] LABS: Glucose Peritoneal Fluid 137 mg/dl; LDH Peritoneal Fluid 34 U/L; Total Protein Peritoneal Fluid < 3.0 gm/dl
[2024-09-11] MEDS: SPIRONOLACTONE 100 MG TAB PO SCH (10:50)
[2024-09-11] MEDS: ALBUMIN 25% 25 GM/100 ML VIAL IV SCH (11:01)
[2024-09-11 11:05] LABS: Hep B Surface Ag with confirm Negative (Negative)
[2024-09-11 11:09] LABS: Hep C Ab Rflx HepCQuant RNA Negative (Negative)
[2024-09-11 12:47] LABS: Appearance Peritoneal Fluid Clear; Color Peritoneal Fluid Yellow; Lymphocytes, Fluid 35 %; Mono,Macrophage,Mesothelial 57 %; Neutrophils, Fluid 8 %; RBC Peritoneal Fluid Auto < 2000 /uL; WBC Peritoneal Fluid Auto 74 /ul (0-300)
--- NOTE | 2024-09-11 12:54 | Ultrasound Report ---
ULTRASOUND-GUIDED PARACENTESIS CLINICAL HISTORY: Ascites PROCEDURE: Procedure and risks were explained. Informed consent was obtained. A final timeout was com pleted. The abdomen was prepped and draped in sterile fashion. 1% lidocaine was utilized for skin ane sthesia. Utilizing ultrasound guidance, a 5 Urdu safety centesis catheter was advanced into the right lower quadrant pocket of ascites. Ultrasound images were obtained. 5 L of yellow-colored ascites fluid was removed and 1 L was sent to lab for analysis. The catheter was removed and Band-Aid applied. The jennifer ent tolerated the procedure well. Vital signs will be monitored postprocedure. IMPRESSION: Ultrasound-guided paracentesis as above. Performed, dictated, and signed by Ángel Pulido PA-C; to be co-signed by Dr. Ar Aguirre. Electronically signed by: Ar Aguirre M.D. 09/11/2024 4:15 PM
--- NOTE | 2024-09-11 18:12 | Hospitalist Progress Note ---
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 scan 09/03/2024: CT abdomen revealed marked ascites, probable cirrhosis, severe degenerative disc disease throughout lumbar spine. BNP elevated Echo shows EF of 60 to 65% with mild concentric LVH. Ordered for IR guided paracentesis(therapeutic/diagnostic); to be done tomorrow a.m. IV albumin ordered to be given before and after paracentesis. On IV Lasix 40 mg and started on spironolactone 100 mg as well GI consulted; obtain serology for hepatitis and genetic liver diseases studies. s/p paracentesis 5 L continue diuretics GI consulted Hypertensionon losartan, metoprolol and hydrochlorothiazide at home. Will stop losartan indefinitely due to cirrhosis. Also, hydrochlorothiazide to be stopped in favor of Lasix. Continue metoprolol - monitor Type 2 diabetes mellitus HbA1c 9.7%; uncontrolled On Trulicity and metformin at homehold On Lantus and NovoLog here. Hyperlipidemiacontinue on Lipitor Mood disordercontinue on paroxetine Urge incontinencecontinue oxybutynin Neuropathycontinue on gabapentin GERDcontinue on Protonix Dementiacontinue on donepezil and memantine Plan of care discussed with patient's daughter at bedside. DNR/DNI DVT prophylaxis heparin Admission and Anticipated Discharge Date Admission Date: September 09, 2024 Subjective seen resting in bed, comfortable s/p paracentesis abdomen feels better no nausea/vomiting no chest pain, dyspnea, palpitations, dizziness on the weak side no other symptoms Review of Systems Review of Systems: all noted and negative except for above Physical Exam Physical Exam: General- oriented x 3, not in distress, speaks in sentences with no effort or accessory muscle use Eyes- anicteric Neck- no JVD Lungs- clear breath sounds bilaterally, no crackles or wheezing Heart- normal rate, regular rhythm; no murmurs Abdomen- normal bowel sounds, nondistended, soft, nontender Extremities- mild pretibial edema, no calf tenderness Neuro- alert, oriented x 3; no gross focal neurologic deficits Skin- warm & dry Results & Data Results & Data Vital Signs (Past 12 Hours) Vital Signs Temp Pulse Pulse Resp BP BP Pulse Ox 09/11/24 15:16 37.0 C 77 18 154/70 H 95 09/11/24 14:41 76 09/11/24 10:46 36.5 C 78 16 164/69 H 95 09/11/24 09:29 74 09/11/24 08:13 36.8 C 80 16 153/75 H 94 09/11/24 07:55 O2 Del Method 09/11/24 15:16 Room Air 09/11/24 14:41 09/11/24 10:46 Room Air 09/11/24 09:29 09/11/24 08:13 Room Air 09/11/24 07:55 Room Air all noted and reviewed including below
[2024-09-12 10:59] LABS: Basophils # (auto) 0.02 K/uL (0.00-0.20); Basophils % (auto) 0.5 %; Eosinophils % (auto) 2.3 %; Hematocrit (blood only) 29.2 % (37.0-47.0); Hemoglobin 9.3 g/dl (12.0-16.0); Immature Granulocytes # (auto) 0.02 K/uL (0.01-0.20); Immature Granulocytes % (auto) 0.5 %; Lymphocytes % (auto) 15.8 %; Mean Corpuscular Hemoglobin 24.5 pg (25.0-34.0); Mean Corpuscular Hgb Conc 31.8 g/dL (32.0-36.0); Mean Platelet Volume 11.3 fL (9.4-12.4); Monocytes # (auto) 0.35 K/uL (0.11-0.59); Monocytes % (auto) 7.9 %; Neutrophils # (auto) 3.23 K/uL (1.40-6.50); Platelet Count 123 K/uL (130-400); RDW Coefficient of Variation 14.7 % (11.5-14.5); RDW Standard Deviation 41.1 fL (36.4-46.3); Red Blood Count 3.79 M/uL (4.20-5.40); White Blood Count 4.42 K/ul (4.8-10.8)
[2024-09-12 11:06] LABS: BUN Creatinine Ratio 12.6 (10-20); Calcium 8.7 mg/dl (8.6-10.3); Creatinine Clr Calc Pharmacy 44.9 ml/min; Potassium 3.4 mmol/L (3.5-5.1)
[2024-09-12] MEDS: POLYETHYLENE (MIRALAX) 17 GM PACK PO ONE (12:17)
[2024-09-12] MEDS: cephALEXin 500 MG CAP PO SCH (13:16)
[2024-09-12] MEDS: ADVANCED PROBIOTIC 625 MG CAPSULE PO SCH (13:16)
--- NOTE | 2024-09-12 17:36 | Hospitalist Progress Note ---
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 scan 09/03/2024: CT abdomen revealed marked ascites, probable cirrhosis, severe degenerative disc disease throughout lumbar spine. BNP elevated Echo shows EF of 60 to 65% with mild concentric LVH. Ordered for IR guided paracentesis(therapeutic/diagnostic); to be done tomorrow a.m. IV albumin ordered to be given before and after paracentesis. On IV Lasix 40 mg and started on spironolactone 100 mg as well GI consulted; obtain serology for hepatitis and genetic liver diseases studies. 09/12 stable after paracentesis continue Lasix + Aldactone Hypertensionon losartan, metoprolol and hydrochlorothiazide at home. Will stop losartan indefinitely due to cirrhosis. Also, hydrochlorothiazide to be stopped in favor of Lasix. Continue metoprolol -- continue to monitor may need Amlodipine Possible Chronic diastolic (congestive) heart failure -- on diuretics per above Type 2 diabetes mellitus HbA1c 9.7%; uncontrolled On Trulicity and metformin at homehold On Lantus and NovoLog here. Hyperlipidemiacontinue on Lipitor Mood disordercontinue on paroxetine Urge incontinencecontinue oxybutynin Neuropathycontinue on gabapentin GERDcontinue on Protonix Dementiacontinue on donepezil and memantine Plan of care discussed with patient's daughter at bedside. DNR/DNI DVT prophylaxis heparin Disposition PT/OT eval Admission and Anticipated Discharge Date Admission Date: September 09, 2024 Subjective ff up for liver cirrhosis, etc seen resting in bed, comfortable states she feels fine overall no abdominal pain ,nausea no chest pain, dyspnea, palpitations, dizziness no other symptoms Review of Systems Review of Systems: all noted and negative except for above Physical Exam Physical Exam: General- oriented x 3, not in distress, speaks in sentences with no effort or accessory muscle use Eyes- anicteric Neck- no JVD Lungs- clear breath sounds bilaterally, no crackles Heart- normal rate, regular rhythm; no murmurs Abdomen- normal bowel sounds, nondistended, soft, nontender Extremities-mild pretibial edema, no calf tenderness (+) erythema R foot - anterior aspect Neuro- alert, oriented x 3; no gross focal neurologic deficits Skin- warm & dry Results & Data Results & Data Vital Signs (Past 12 Hours) Vital Signs Temp Pulse Pulse Resp BP BP Pulse Ox 09/12/24 15:08 85 09/12/24 14:48 37.1 C 67 18 120/66 96 09/12/24 12:51 36.9 C 68 19 147/72 H 96 09/12/24 08:19 36.5 C 67 17 174/74 H 96 09/12/24 08:00 73 O2 Del Method 09/12/24 15:08 09/12/24 14:48 Room Air 09/12/24 12:51 Room Air 09/12/24 08:19 Room Air 09/12/24 08:00 all noted and reviewed including below
[2024-09-12] MEDS: POTASSIUM CHLORIDE CRTAB 20 MEQ TABCR PO STA (19:26)
[2024-09-13 07:56] VITALS: RESP 19
[2024-09-13] MEDS: FUROSEMIDE 40 MG TAB PO SCH (10:35)
[2024-09-13 10:58] LABS: Alpha 1 Antitrypsin 227 mg/dL (83-199); Anti Mitochondrial Antibody NEGATIVE (NEGATIVE); Anti Nuclear Antibody Screen POSITIVE (NEGATIVE); Ceruloplasmin 21 mg/dL (14-48); Hepatitis A Antibody IgM NON-REACTIVE (NON-REACTIVE); Hepatitis A Antibody Total REACTIVE (NON-REACTIVE); Hepatitis B Core Antibody IgM NON-REACTIVE (NON-REACTIVE); Smooth Muscle Antibody NEGATIVE (NEGATIVE); Transglutaminase, Tissue IgA <1.0 U/mL
[2024-09-13 11:02] LABS: BUN Creatinine Ratio 15.9 (10-20); Calcium 8.7 mg/dl (8.6-10.3); Creatinine Clr Calc Pharmacy 40.9 ml/min; Potassium 3.7 mmol/L (3.5-5.1)
[2024-09-13 12:02] LABS: ANA Pattern Nuclear, Speckled
[2024-09-13 12:10] VITALS: BP 103/66; PULSE 69; TEMP 97.9; O2SAT 96
--- NOTE | 2024-09-13 13:10 | Pharmacy Report ---
Pharmacy Glycemic Short Note 2 - Date of Service September 13, 2024 - Glycemic Short BSG Results (Last 24 hours): 09/12/24 09/12/24 09/13/24 17:25 19:51 07:52 Glucose POC Glucose 188 H 172 H 165 H 09/13/24 09/13/24:18 12:09 Glucose 208 H POC Glucose 150 H OUTPATIENT ANTIDIABETIC REGIMEN: * Metformin 1g BID * Trulicity 3 mg SQ once weekly * A1c 9.7% 09/10/24 ASSESSMENT: 09/13 * Patient received total of 24 units of insulin yesterday, of which 14 units were basal insulin * Fasting BSG 165 mg/dL - continue same basal * CF/CR tightened slightly this AM 09/10 * CH is here for abdominal ascites and is consulted to manage her T2DM. PMH includes CKD III, HTD, and HLD. * BSGs last night were elevated above goal range, but seemed to have come down this AM after receiving 7 units of glargine and 1 unit of aspart last night. * Pt ordered PO diet. PLAN FOR INPATIENT GLYCEMIC CONTROL: * Hold outpatient diabetes medications * Basal insulin * Lantus 7 units SQ BID * Bolus insulin * NovoLog per scale ACHS or Q6hrs while NPO * Goal Range: Low 110 mg/dL - High 140 mg/dL * Correction Factor: 35 mg/dL/unit * Nutritional / Prandial insulin per carb ratio of 1 unit per 12 grams CHO consumed
--- NOTE | 2024-09-13 14:59 | Discharge Summary ---
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 scan 09/03/2024: CT abdomen revealed marked ascites, probable cirrhosis, severe degenerative disc disease throughout lumbar spine. BNP elevated Echo shows EF of 60 to 65% with mild concentric LVH. Ordered for IR guided paracentesis(therapeutic/diagnostic); to be done tomorrow a.m. IV albumin ordered to be given before and after paracentesis. On IV Lasix 40 mg and started on spironolactone 100 mg as well GI consulted; obtain serology for hepatitis and genetic liver diseases studies. 09/11 s/p Paracentesis 5 L removed no signs of bacterial peritonitis 09/13 has remained stable after paracentesis continue Lasix 40mg + Aldactone 100mg daily per GI - MELD labs every 6 months - ABD imaging w/ AFP every 6 months - EGD every 1-2 years for variceal screening. - No ETOH - No NSAIDs - Avoid hepatotoxins - Low NA diet, less than 2G daily - Less than 2G acetaminophen containing products daily - patient needs to ff up with [facility] October 17, 2024 11:30 [facility] [place] (per patient's family preference, closer to home) the GI [facility] will try to call them for an earlier appointment Hypertension on losartan, metoprolol and hydrochlorothiazide at home. --Losartan and HCTZ discontinued for now to avoid kidney injury with Lasix/Aldactone -- continue Metoprolol continue to monitor BP closely Possible Chronic diastolic (congestive) heart failure -- on diuretics per above Type 2 diabetes mellitus HbA1c 9.7%; uncontrolled On Trulicity and metformin at homehold On Lantus and NovoLog while admitted-- continue for now Hyperlipidemiacontinue on Lipitor Mood disordercontinue on paroxetine Urge incontinencecontinue oxybutynin Neuropathycontinue on gabapentin GERDcontinue on Protonix Dementiacontinue on donepezil and memantine DNR/DNI DVT prophylaxis heparin q12h Disposition transition to Acute Rehab ff up with [facility] in 2 weeks Notes For Next Care Provider Medication Changes From Visit please refer to assessment and plan Admission HPI Per Admitting Provider 79-year-old lady with PMH of HTN, GERD, urinary incontinence, T2DM, cerebrovascular disease, CKD stage IIIb, secondary pulmonary arterial hypertension, thrombocytopenia, Alzheimer's disease, vascular dementia, major depression in remission, iron deficiency anemia, vitamin D deficiency, obesity presented to the ED with complaint of swelling and weight gain and shortness of breath. Patient reports fluid overload in the form of increasing abdominal girth and increasing lower extremity swelling for about 2 weeks, progressively worsening. Patient reports feeling weak and dizzy at times. Patient reports recent sore throat and mostly dry cough now, denies headache or chest pain or palpitation or belly pain or pain or burning while passing urine. Patient reports her bowel movements at her usual frequency. Patient did report shortness of breath since today which triggered her to come to the ED. Patient states quitting smoking more than 20 years ago, reports drinking alcohol maybe once a month, denies recreational drug use. Medications reviewed with the patient and her in detail at bedside. Patient takes metformin 1 g twice a day, Trulicity 3 mg subcutaneous once a week, losartan 100 mg once a day, metoprolol tartrate 12.5 mg twice a day, paroxetine 37.5 mg once a day, hydrochlorothiazide 25 mg once a day, atorvastatin 40 mg once a day, cholestyramine 4 g twice a day, oxybutynin 5 mg twice a day, gabapentin 100 mg in the morning and 200 mg in the evening, aspirin 81 mg daily, pantoprazole 40 mg daily, donepezil 10 mg at bedtime, memantine 10 mg twice a day. Plan of care discussed with the patient and her at bedside, they voiced understanding. DNR/DNI. Admission Exam Per Admitting Provider GENERAL: Alert and oriented x3. NAD, on RA. Obese class I HEENT: No pallor, no icterus. Pupils equal, round and reactive to light. Oral mucosa moist. NECK: No JVD, no neck masses. HEART: S1 and S2 heard. Regular rate and rhythm. No murmur, no gallop. RESPIRATORY SYSTEM: Normal AP diameter. No accessory muscle use. No wheezing, bb crackles. ABDOMEN: Soft, bowel sounds present, nontender, + distention. CENTRAL NERVOUS SYSTEM: No facial droop. Speech is clear. Obeys simple commands. Moves extremities. EXTREMITIES: 2+ BLE edema, no erythema seen. Discharge Exam General- oriented x 3, not in distress, speaks in sentences with no effort or accessory muscle use Eyes- anicteric Neck- no JVD Lungs- clear breath sounds bilaterally, no rales/wheezes Heart- normal rate, regular rhythm; no murmurs Abdomen- normal bowel sounds, nondistended, soft, no tenderness Extremities-mild lower leg and pedal edema, no calf tenderness no erythema Neuro- alert, oriented x 3; no gross focal neurologic deficits Skin- warm & dry Updated Medication List Medication Instructions Recorded Confirmed Type atorvastatin 40 mg tablet 40 mg DAILY 09/10/24 09/10/24 History cholestyramine (with sugar) 4 gram 4 ea PO BID 09/10/24 09/10/24 History oral powder donepezil 10 mg tablet 10 mg PO DAILY 09/10/24 09/10/24 History dulaglutide 0.75 mg/0.5 mL 0.75 mg subcut WK 09/10/24 09/10/24 History subcutaneous pen injector (Trulicity) fluticasone propionate 50 50 mcg intranasal DAILY 09/10/24 09/10/24 History mcg/actuation nasal spray,suspension furosemide 40 mg tablet 40 mg PO DAILY 09/10/24 09/10/24 History gabapentin 100 mg capsule 100 mg PO TID 09/10/24 09/10/24 History hydrochlorothiazide 25 mg tablet 25 mg PO DAILY 09/10/24 09/10/24 History losartan 100 mg tablet 100 mg PO DAILY 09/10/24 09/10/24 History memantine 10 mg tablet 10 mg PO DAILY 09/10/24 09/10/24 History memantine 10 mg tablet mg 09/10/24 History metformin 500 mg tablet 500 mg PO DAILY 09/10/24 09/10/24 History metoprolol tartrate 25 mg tablet 25 mg PO DAILY 09/10/24 09/10/24 History oxybutynin chloride 5 mg 5 mg PO DAILY 09/10/24 09/10/24 History tablet,extended release 24 hr pantoprazole 40 mg tablet,delayed 40 mg PO DAILY 09/10/24 09/10/24 History release paroxetine HCl 37.5 mg 37.5 mg PO DAILY 09/10/24 09/10/24 History tablet,extended release 24 hr potassium chloride 20 mEq 20 meq PO DAILY 09/10/24 09/10/24 History tablet,extended release L.acidop,casei,lactis,rham-B.lact,flor 1 cap PO DAILY 14 days #14 caps 09/13/24 Rx 625 mg (10 billion cell) capsule (Advanced Probiotic) cephalexin 500 mg capsule 500 mg PO QID 4 days #16 caps 09/13/24 Rx heparin, porcine (PF) 5,000 5,000 unit (0.5 mL) subcut Q12 30 09/13/24 Rx unit/0.5 mL injection syringe days #30 mL insulin aspart U-100 100 unit/mL 1 unit (0.01 mL) SC ACHS #10 mL 09/13/24 Rx subcutaneous solution (Novolog U-100 Insulin aspart) insulin glargine 100 unit/mL 7 unit (0.07 mL) subcut BID 30 09/13/24 Rx subcutaneous solution (Lantus days #4.2 mL U-100 Insulin) magnesium hydroxide 400 mg/5 mL 30 ml PO Q12H PRN constipation 30 09/13/24 Rx oral suspension (Milk of Magnesia) days #355 mL spironolactone 100 mg tablet 100 mg PO QAM 30 days #30 tabs 09/13/24 Rx Hospital Stay Data Consultations 09/09/24 17:29 Consult Gastroenterology Routine Diagnostic Imagining Performed 09/11/24 IR paracentesis abd w/img US Routine 09/11/24 08:00 US liver Routine US liver CLINICAL HISTORY: Evaluate cirrhosis. COMPARISON STUDY: No previous studies for comparison. TECHNIQUE: Sonography of the right upper quadrant was performed. FINDINGS: There is coarsening of hepatic echotexture and nodularity of the liver surface indicative of cirrhosis. No hepatic lesions are identified. The main portal vein is patent with appropriately directed flow. There is no biliary ductal dilatation status post cholecystectomy. The common bile duct measures 3 mm in caliber. Small amount of perihepatic ascites is present. Pancreatic body is normal. The head and tail are partially obscured. There is no right hydronephrosis. IMPRESSION: 1. Cirrhotic liver. No hepatic lesions identified. 2. No biliary ductal dilatation status post cholecystectomy. 3. Small amount of perihepatic ascites. ACT 112: Negative or not required by law. XR chest 1V portable CLINICAL HISTORY: weakness COMPARISON STUDY: No previous studies for comparison. FINDINGS: Severe osteoarthritis of the left glenohumeral joint is incidentally noted. There is apparent moderate elevation of the right hemidiaphragm. No consolidation is identified. There is no evidence for pulmonary edema. The heart is mildly enlarged. IMPRESSION: 1. No acute cardiopulmonary findings. 2. Mild cardiomegaly without evidence for pulmonary edema. 3. Moderate elevation of the right hemidiaphragm. ACT 112: Negative or not required by law. Discharge Instructions Given to Patient (Per Discharging Provider) PLEASE REFER TO ACCOMPANYING HOSPITAL DISCHARGE SUMMARY. INSULIN SLIDING SCALE FOR NOVOLOG: --Goal BSG Range: Low 110 mg/dL, High 140 mg/dL --Correction Factor: 35 mg/dL/unit --Carbohydrate ratio = 12 g/unit --BSGs ACHS if eating, q6h if npo Total Time Total Time Spent Total Time Spent (In Minutes): 60 minutes
== END 2024-09-13 16:39 | DRG 433 ==
LOC: ED 13:07 → SUATTDRO 17:30 → 4W 17:30
DX: F02.80 Dementia in other diseases classified elsewhere, unspecified severity, without behavioral disturbance, psychotic disturbance, mood disturbance, and anxiety; K21.9 Gastro-esophageal reflux disease without esophagitis; N18.32 Chronic kidney disease, stage 3b; K74.60 Unspecified cirrhosis of liver; E78.5 Hyperlipidemia, unspecified; Z87.891 Personal history of nicotine dependence; I27.21 Secondary pulmonary arterial hypertension; F32.5 Major depressive disorder, single episode, in full remission; E11.40 Type 2 diabetes mellitus with diabetic neuropathy, unspecified; Z66 Do not resuscitate; R18.8 Other ascites; E55.9 Vitamin D deficiency, unspecified; I50.32 Chronic diastolic (congestive) heart failure; K75.81 Nonalcoholic steatohepatitis (NASH); E83.42 Hypomagnesemia; E88.810 Metabolic syndrome; I13.0 Hypertensive heart and chronic kidney disease with heart failure and stage 1 through stage 4 chronic kidney disease, or unspecified chronic kidney disease; G30.9 Alzheimer's disease, unspecified